=== PATIENT | female | born 1990 | race Caucasian/White ===

== ENCOUNTER 2016-08-12 13:47 | Emergency (ER) | payer BC ==
[~2016-08-12] VITALS: Ht 165.1 cm; Wt 89.8 kg
[~2016-08-12 13:47] MED LIST: METR-163 PO; PRENTAB26 PO
[2016-08-12 14:00] VITALS: TEMP 36.9; Ht 165.1 cm; Wt 89.8 kg
[2016-08-12] MEDS ORDERED: ACET-1256 PO (14:30)
[2016-08-12] MEDS ORDERED: ONDANSETRON INJ 2 MG/ML 2 ML VIAL IV STA (14:37)
[2016-08-12] MEDS ORDERED: SODIUM CHLORIDE 0.9% 1000ML 1,000 ML IV STA (14:37)
[2016-08-12] MEDS ORDERED: OPTIRAY 320 IV PRN (14:45)
[2016-08-12] MEDS ORDERED: KETOROLAC TROMETHAMINE 30 MG/ML VIAL IV STA (15:01)
[2016-08-12 15:05] LABS: URINE APPEARANCE CLOUDY (CLEAR); URINE BILIRUBIN NEG (NEG); URINE COLOR YELLOW; URINE EPITHELIAL CELL AUTO >30 /lpf (0-5); URINE NITRITE NEG (NEG); URINE SPECIFIC GRAVITY 1.022 (1.000-1.030); UROBILINOGEN NEG (NEG)
[2016-08-12 15:06] LABS: BASO % 0.4 %; BASO ABS # 0.04 K/uL (0-0.2); COMPLETE YES; EOS % 1.3 %; HEMATOCRIT 42.2 % (37-47); IG% 0.2 %; MEAN CELL VOLUME 84.9 fL (80-100); MEAN CORPUSCULAR HEMOGLOBIN 30.2 pg (25-34); MEAN CORPUSCULAR HGB CONC 35.5 g/dl (32-36); MEAN PLATELET VOLUME 10.2 fL (7.4-10.4); MONO % 5.5 %; NEUT % 63.6 %; PLATELET COUNT 242 K/uL (130-400); RED BLOOD COUNT 4.97 M/uL (4.2-5.4)
--- NOTE | 2016-08-12 15:06 | EMERGENCY ROOM VISIT NOTE ---
History Report prepared by Aki: Cristal Beasley Under the Supervision of: Dr. John Cote M.D. First contact with patient: 14:31 Chief Complaint: ABDOMINAL PAIN Stated Complaint: STOMACH PAINS, CRAMPING Nursing Triage Summary: Pt reports constipation and severe stomach pains for over a week. Hx chrons. Last BM over a week ago. Also reports bloating and nausea. History of Present Illness The patient is a 25 year old female who presents to the Emergency Room with complaints of persistent abdominal pain for the past week. She describers her pain as sharp and cramping and rates her discomfort as a 5/10 in severity. The patient has a history of Crohn's disease, but states that she has not had any major symptoms for the past 10 years. She also reports that she is not on any immunosuppressants or other medications. She reports that she has not had a bowel movement since last week. The patient does admit that she regularly experiences constipation, but she states that she can usually take laxatives to alleviate her discomfort. She states that food intake worsens her pain, creating a burning sensation in her stomach. She denies any fever. Source of History: patient Onset: last week Position: abdomen Symptom Intensity: 5/10 Quality: sharp, cramping Timing: other (persistent) Modifying Factors (Worsening): eating Associated Symptoms: + nausea, No fevers Note: Associated symptoms: Constipation, bloating Review of Systems See HPI for pertinent positives & negatives. A total of 10 systems reviewed and were otherwise negative. Past Medical & Surgical Medical Problems: (1) Crohns disease Social History Smoking Status: Current Some Day Smoker Alcohol Use: occasionally Drug Use: none Marital Status: single Housing Status: lives with family Occupation Status: employed Current/Historical Medications Scheduled Acetaminophen (Tylenol), 1,000 MG PO DIRECTED Allergies Coded Allergies: No Known Allergies (Verified , 08/12/16) Physical Exam Vital Signs Date Time Temp Pulse Resp B/P Pulse Ox O2 Delivery O2 Flow Rate FiO2 08/12/16 19:00 81 16 115/80 94 08/12/16 17:28 90 18 127/83 99 Room Air 08/12/16 15:46 80 16 132/74 100 Room Air 08/12/16 14:00 36.9 93 18 147/97 98 Room Air Physical Exam CONSTITUTIONAL: The patient appears to be in mild to moderate distress. HEENT: No icterus, moist mucous membranes NECK: No meningismus, trachea is midline. CARDIOVASCULAR: Regular rate, normal perfusion RESPIRATORY: Unlabored breathing. Clear to auscultation. GASTROINTESTINAL: Mild LLQ tenderness. GENITOURINARY: No flank tenderness MUSCULOSKELETAL: Full range of motion NEUROLOGIC: No acute gross focal deficits. PSYCHIATRIC: Normal affect SKIN: Normal for ethnicity. Medical Decision & Procedures ER Provider Diagnostic Interpretation: Radiology results as stated below per my review and radiologist interpretation. ABDOMEN AND PELVIS CT WITH IV AND ORAL CONTRAST IMPRESSION: 1. Nonobstructive bowel pattern. 2. Normal appendix. 3. 1.6 cm collapsing right ovarian cyst. 4. Moderate reactive mesenteric adenitis. Electronically signed by: Nolberto Rodriguez M.D. 08/12/2016 5:50 PM Laboratory Results 08/12/16 14:50 Red Blood Count 4.97, Mean Corpuscular Volume 84.9, Mean Corpuscular Hemoglobin 30.2, Mean Corpuscular Hemoglobin Concent 35.5, Mean Platelet Volume 10.2, Neutrophils (%) (Auto) 63.6, Lymphocytes (%) (Auto) 29.0, Monocytes (%) (Auto) 5.5, Eosinophils (%) (Auto) 1.3, Basophils (%) (Auto) 0.4, Neutrophils # (Auto) 5.91, Lymphocytes # (Auto) 2.70, Monocytes # (Auto) 0.51, Eosinophils # (Auto) 0.12, Basophils # (Auto) 0.04 08/12/16 14:50 Test 08/12/16 14:50 White Blood Count 9.30 K/uL (4.8-10.8) Red Blood Count 4.97 M/uL (4.2-5.4) Hemoglobin 15.0 g/dL (12.0-16.0) Hematocrit 42.2 % (37-47) Mean Corpuscular Volume 84.9 fL (80-100) Mean Corpuscular Hemoglobin 30.2 pg (25-34) Mean Corpuscular Hemoglobin Concent 35.5 g/dl (32-36) Platelet Count 242 K/uL (130-400) Mean Platelet Volume 10.2 fL (7.4-10.4) Neutrophils (%) (Auto) 63.6 % Lymphocytes (%) (Auto) 29.0 % Monocytes (%) (Auto) 5.5 % Eosinophils (%) (Auto) 1.3 % Basophils (%) (Auto) 0.4 % Neutrophils # (Auto) 5.91 K/uL (1.4-6.5) Lymphocytes # (Auto) 2.70 K/uL (1.2-3.4) Monocytes # (Auto) 0.51 K/uL (0.11-0.59) Eosinophils # (Auto) 0.12 K/uL (0-0.5) Basophils # (Auto) 0.04 K/uL (0-0.2) RDW Standard Deviation 39.3 fL (36.4-46.3) RDW Coefficient of Variation 12.8 % (11.5-14.5) Immature Granulocyte % (Auto) 0.2 % Immature Granulocyte # (Auto) 0.02 K/uL (0.00-0.02) Urine Color YELLOW Urine Appearance CLOUDY (CLEAR) Urine pH 6.0 (4.5-7.5) Urine Specific [place] 1.022 (1.000-1.030) Urine Protein NEG (NEG) Urine Glucose (UA) NEG (NEG) Urine Ketones TRACE (NEG) Urine Occult Blood TRACE (NEG) Urine Nitrite NEG (NEG) Urine Bilirubin NEG (NEG) Urine Urobilinogen NEG (NEG) Urine Leukocyte Esterase MODERATE (NEG) Urine WBC (Auto) 10-30 /hpf (0-5) Urine RBC (Auto) 0-4 /hpf (0-4) Urine Hyaline Casts (Auto) 1-5 /lpf (0-5) Urine Epithelial Cells (Auto) >30 /lpf (0-5) Urine Bacteria (Auto) 2+ (NEG) Anion Gap 12.0 mmol/L (3-11) Est Creatinine Clear Calc Drug Dose 96.0 ml/min Estimated GFR () 91.3 Estimated GFR (Non- 78.8 BUN/Creatinine Ratio 15.7 (10-20) Calcium Level 9.2 mg/dl (8.5-10.1) Total Bilirubin 0.5 mg/dl (0.2-1) Direct Bilirubin < 0.1 mg/dl (0-0.2) Aspartate Amino Transf (AST/SGOT) 13 U/L (15-37) Alanine Aminotransferase (ALT/SGPT) 20 U/L (12-78) Alkaline Phosphatase 71 U/L (45-117) Total Protein 7.8 gm/dl (6.4-8.2) Albumin 3.9 gm/dl (3.4-5.0) Lipase 220 U/L (73-393) Human Chorionic Gonadotropin, Qual NEG (NEG) Labs reviewed by ED physician. Medications Administered Medications (Trade) Dose Ordered Sig/Oneil Route Start Time Stop Time Status Last Admin Dose Admin Sodium Chloride (Nss 1000ml) 1,000 ml @ 0 mls/hr Q0M STAT IV 08/12/16 14:37 08/12/16 14:40 DC 08/12/16 15:08 0 MLS/HR Ondansetron HCl (Zofran Inj) 4 mg NOW STAT IV 08/12/16 14:37 08/12/16 14:40 DC 08/12/16 15:08 4 MG Ketorolac Tromethamine (Toradol Inj) 30 mg NOW STAT IV 08/12/16 15:01 08/12/16 15:02 DC 08/12/16 15:09 30 MG ED Course 1437: Ondansetron HCl 4mg IV, NSS 1000 ml @ 0 mls/hr IV 1441: Past medical records reviewed. The patient was evaluated in room B8. A complete history and physical examination was performed. 1501: Toradol Inj 30 mg IV 1839: I reevaluated the patient. She is looks good and is feeling better. I discussed the results and discharge instructions with her and she verbalized complete understanding and agreement. Her abdominal exam is still benign. Medical Decision Prior records/ancillary studies reviewed. Triage Nursing notes reviewed. Additional history obtained from []. The patient's history was concerning for abdominal pain. Differential diagnosis: Etiologies such as ovarian cyst, constipation, complications of Crohn's disease. 25 y/o with distant h/o of Crohn's asymptomatic for 10 years presented to the ED for evaluation of bloating, cramping, and LLQ discomfort in the context of mild constipation. CT (+) mesenteric adenitis, small cyst. Patient comfortable on re-exam. Provided copy of CT report. Abd benign prior to discharge. Patient understands to take Tylenol and Motrin 600mg. Impression Primary Impression: Abdominal pain Scribe Attestation The scribe's documentation has been prepared under my direction and personally reviewed by me in its entirety. I confirm that the note above accurately reflects all work, treatment, procedures, and medical decision making performed by me. Departure Information Dispostion Home / Self-Care Referrals No Doctor, Assigned (PCP) Forms HOME CARE DOCUMENTATION FORM, IMPORTANT VISIT INFORMATION Patient Instructions Abdominal Pain - [facility], My [facility] Additional Instructions Tylenol 650 mg and Motrin 600 mg together every 6 hours as needed for pain.
[2016-08-12 15:07] LABS: MANUAL MICROSCOPIC REQUIRED? NO; REVIEW REQ? NO
[2016-08-12 15:26] LABS: PREG INTERNAL NEGATIVE QC NEG CLEAR BACKGROUND; PREG INTERNAL POSITIVE QC POS CONTROL LINE
[2016-08-12 15:32] LABS: ALT/SGPT 20 U/L (12-78); BLOOD UREA NITROGEN 16 mg/dl (7-18); BUN/CREATININE RATIO 15.7 (10-20); CALCIUM 9.2 mg/dl (8.5-10.1); CARBON DIOXIDE 25 mmol/L (21-32); GLUCOSE 81 mg/dl (70-99)
[2016-08-12 16:54] LABS: CHLORIDE 107 mmol/L (98-107); POTASSIUM 3.6 mmol/L (3.5-5.1); SODIUM 144 mmol/L (136-145)
[2016-08-12 17:02] LABS: ALKALINE PHOSPHATASE 71 U/L (45-117); AST/SGOT 13 U/L (15-37)
--- NOTE | 2016-08-12 17:51 | DIAGNOSTIC IMAGING REPORT ---
ABDOMEN AND PELVIS CT WITH IV AND ORAL CONTRAST CT DOSE: 734.34 mGy.cm HISTORY: Pain abd pain, croons TECHNIQUE: Multiaxial CT images of the abdomen and pelvis were performed following the use of intravenous and oral contrast. COMPARISON STUDY: None. FINDINGS: Lung bases are clear. Minimal dependent scattered plaque atelectasis. Mild fatty infiltration of liver. Gallbladder is negative for distention. Spleen is uniform. Pancreas is unremarkable. Kidneys demonstrate mild cortical scarring bilaterally. There is no evidence renal hydronephrosis. Bowel pattern is nonobstructive. The appendix is normal. Moderate scattered mesenteric and right lower quadrant pericecal rashad changes present. This suggests a component of mesenteric adenitis. Intrauterine device is present within the anteflexed uterus. There is a 1.6 cm collapsing right ovarian cyst. There is no free fluid within the pelvic cul-de-sac. IMPRESSION: 1. Nonobstructive bowel pattern. 2. Normal appendix. 3. 1.6 cm collapsing right ovarian cyst. 4. Moderate reactive mesenteric adenitis. Electronically signed by: Nolberto Rodriguez M.D. 08/12/2016 5:50 PM Dictated Date/Time: 08/12/2016 5:46 PM
[2016-08-12 19:00] VITALS: BP 115/80; PULSE 81; O2SAT 94
== END 2016-08-12 19:00 | disposition home or self-care (01) ==
LOC: C.EDB 13:48
DX: R10.9 Unspecified abdominal pain (principal); K50.90 Crohn's disease, unspecified, without complications; F17.200 Nicotine dependence, unspecified, uncomplicated

== ENCOUNTER 2017-04-12 20:26 | Emergency (ER) | payer BC ==
[~2017-04-12] VITALS: Ht 165.1 cm; Wt 92.2 kg
[~2017-04-12 20:26] MED LIST changes: +ACET-1256 PO; -METR-163 PO; -PRENTAB26 PO
[2017-04-12 20:40] VITALS: BP 136/89; TEMP 36.8; Ht 165.1 cm; Wt 92.2 kg
[2017-04-12] MEDS ORDERED: OXYCODONE HCL IR 5 MG TAB (IMMEDIATE RELEASE) PO STA (21:07)
--- NOTE | 2017-04-12 22:10 | EMERGENCY ROOM VISIT NOTE ---
ED Visit Note First contact with patient: 21:01 Chief Complaint: "Smashed finger/cut". History of Present Illness: This patient is a 26-year-old female who presents to the Emergency Department via private vehicle accompanied by female for evaluation of their left second digit laceration. Patient sustained the laceration while attempting to throw piece of wood into the furnace, when she smashed the distal portion of the left second digit between the metal furnace in the piece of what. They report a small amount of bleeding initially. They admit to any numbness or tingling into the distal extremity. They report note decreased range of motion of the affected digit. She has tried ibuprofen prior to coming here with minimal relief. Patient rates her current discomfort as a 9/ 10. Patient's Tetanus status is believed to be currently up-to-date. Medications: As noted below Allergies: No pertinent PMH: No pertinent SHx: Patient lives locally ROS: All pertinent positive and negative review of systems are appropriately documented in the History of Present Illness. Physical Exam: VITAL SIGNS - Vital signs and nursing notes were reviewed. GENERAL -26-year-old female appearing her stated age who is in no acute distress. Communicates well with provider and answers questions appropriately. SKIN - There is a 0.5 cm long laceration noted on the lateral aspect of the patient's left second digit. The edges do not gape apart with traction. No foreign bodies appreciated. Upon further examination there are no deep structures including vessel, tendon, or bony structures appreciated. Subungual hematoma noted. There is no active bleeding noted. MUSCULOSKELETAL - Laceration as described above. +5/5 strength appreciated of the affected digit. Full range of motion of the affected digit. NEUROLOGIC - Spinothalamic tract was found to be intact with ability to discriminate sharp versus dull sensation. No sensory defects of the dorsal column were appreciated utilizing light touch for evaluation. VASCULAR - Capillary refill was brisk. IMAGING: LEFT SECOND FINGER 3 VIEWS CLINICAL HISTORY: Crushing injury. FINDINGS: 3 views of the left second finger are obtained. No prior studies are available for comparison at the time of dictation. There is a comminuted and nondistracted fracture through the tuft of the second distal phalanx with overlying soft tissue edema. Nondistracted horizontal fracture is also suggested through the proximal shaft of the second distal phalanx. This is best seen on the lateral projection. No additional fracture is seen. The second metacarpophalangeal and interphalangeal joints are well-maintained. No radiodense foreign body seen. IMPRESSION: 1. There is a comminuted and nondistracted fracture through the tuft of the second distal phalanx with overlying soft tissue edema. 2. Question additional nondistracted horizontal fracture through the proximal shaft of the second distal phalanx. Electronically signed by: Amando Combs M.D. 04/12/2017 10:11 PM Dictated Date/Time: 04/12/2017 10:10 PM ED Course: Patient was seen and evaluated by myself. Risks and benefits of performing primary wound closure versus no repair were discussed with the patient who verbalizes understanding. Verbal consent was obtained prior to performing the procedure. No evidence of suturable wound. It was superficial. Subungual hematoma noted. Patient notes great pressure and pain in this region, therefore benefit versus risk of trephination was discussed. Decision was made to perform this with sterile drill. There was release of blood from the region. Patient was starting to regain feeling of the finger, and notes that her pain was starting to become alleviated. She was given the oxycodone immediate release for her pain. She denied chance of . X-ray was obtained with results as above. Fracture noted. No evidence of open fracture. Wound was cleansed thoroughly with normal saline and Betadine., She was placed in a metal splint. Bacitracin dressing was applied. She is to follow with family doctor/orthopedics. She was educated upon management, educated upon worrisome symptoms which to return, had questions answered prior to discharge, and was discharged home in good condition. Small prescription for oxycodone was written secondary to her pain with the fracture. In the evaluation and treatment of this patient, the following differential diagnoses were considered: Finger Fracture, Finger Dislocation, Finger Sprain, Finger Contusion, [place] Finger, or Mallet Finger. In the treatment of this patient controlled medication was utilized and therefore the [facility], Prescription Drug Monitoring Program website was utilized to look up this patient. No concerns were identified that would prohibit or alter my treatment decision. Current/Historical Medications Scheduled PRN Oxycodone Ir (Roxicodone Ir), 1-2 TAB PO Q4H PRN for Pain Allergies Coded Allergies: No Known Allergies (Verified , 08/12/16) Vital Signs Date Time Temp Pulse Resp B/P (MAP) Pulse Ox O2 Delivery O2 Flow Rate FiO2 04/12/17 22:41 72 16 99 04/12/17 20:40 36.8 76 18 136/89 98 Room Air Medications Administered Medications (Trade) Dose Ordered Sig/Oneil Route Start Time Stop Time Status Last Admin Dose Admin Oxycodone HCl (Roxicodone Immediate Rel Tab) 5 mg NOW STAT PO 04/12/17 21:07 04/12/17 21:09 DC 04/12/17 21:37 5 MG Oxycodone HCl (Roxicodone Immediate Rel 5MG Home Pack) 1 homepack UD STAT PO 04/12/17 22:24 04/12/17 22:25 DC 04/12/17 22:35 1 HOMEPACK Departure Information Impression Primary Impression: Laceration of finger Additional Impression: Finger fracture Dispostion Home / Self-Care Condition GOOD Prescriptions Oxycodone Ir (Roxicodone Ir) 5 Mg Tab 1-2 TAB PO Q4H Y for Pain, #15 TAB For Initial Treatment Prov: Ty Melendez PA-C 04/12/17 Referrals No Doctor, Assigned (PCP) Sebas Pickens MD Patient Instructions My [facility] Additional Instructions Discharge Instructions: Please wear the splint for comfort until follow up with Family doctor or orthopedics oxy ir for pain. no driving with this in your system. Proper wound care is essential for adequate wound healing and infection prevention. You can shower and clean the wound with soap and water. Do not scour over the wound, pat dry with a towel. Do not submerse the wound (i.e. bathe or dish wash) until the wound is healed. You can use an antibiotic ointment with a dressing over the wound for the next 3-4 days. After this time you may leave the wound dry and open to the air. If crust develops over the wound you can use a Q-tip to apply a 1:1 peroxide:water solution to clean the wound. Look for signs of infection of the wound including: increased pain, swelling, foul discharge, streaking, or increased temperature. If any of these are noticed you should return to the Emergency Department for further assessment and treatment. As with any laceration you may have received nerve damage to the surrounding tissues. This damage may or may not be permanent. You should keep the area covered with sunscreen for the first 6 months to 1 year when at risk for exposure to help minimize scarring. You can also use scar reducing creams or Vitamin E oil to help minimize scarring. For pain control, you can use the following [id number] medicines (if >12 yo): - Regular strength (325mg/tab) Tylenol (acetaminophen) 2 tabs every 4-6 hours as needed. Do not exceed 12 tablets in a 24 hour period. Avoid taking more than 3 grams (3000 mg) of Tylenol per day. This includes any other sources of acetaminophen you may take on a regular basis. - Regular strength (200 mg/tab) Advil (ibuprofen) 1-2 tabs every 4-6 hours as needed. Do not exceed a dose of 3200 mg per day. Return to the emergency department if your symptoms worsen despite treatment course outlined above. Problem Qualifiers
--- NOTE | 2017-04-12 22:13 | DIAGNOSTIC IMAGING REPORT ---
LEFT SECOND FINGER 3 VIEWS CLINICAL HISTORY: Crushing injury. FINDINGS: 3 views of the left second finger are obtained. No prior studies are available for comparison at the time of dictation. There is a comminuted and nondistracted fracture through the tuft of the second distal phalanx with overlying soft tissue edema. Nondistracted horizontal fracture is also suggested through the proximal shaft of the second distal phalanx. This is best seen on the lateral projection. No additional fracture is seen. The second metacarpophalangeal and interphalangeal joints are well-maintained. No radiodense foreign body seen. IMPRESSION: 1. There is a comminuted and nondistracted fracture through the tuft of the second distal phalanx with overlying soft tissue edema. 2. Question additional nondistracted horizontal fracture through the proximal shaft of the second distal phalanx. Electronically signed by: Amando Combs M.D. 04/12/2017 10:11 PM Dictated Date/Time: 04/12/2017 10:10 PM
[2017-04-12] MEDS ORDERED: OXYCODONE IR HOME PACK PO STA (22:24)
[2017-04-12] MEDS ORDERED: OXYC1TAB3 PO (22:25)
[2017-04-12 22:41] VITALS: PULSE 72; O2SAT 99
== END 2017-04-12 22:43 | disposition home or self-care (01) ==
LOC: C.EDB 20:27 → C.EDD 22:43
DX: S61.211A Laceration without foreign body of left index finger without damage to nail, initial encounter (principal); S62.601A Fracture of unspecified phalanx of left index finger, initial encounter for closed fracture; W45.8XXA Other foreign body or object entering through skin, initial encounter

== ENCOUNTER → 2017-04-13 | Outpatient (CLI) | payer BC ==
[~2017-04-13] MED LIST changes: -ACET-1256 PO; +OXYC1TAB3 PO
--- NOTE | 2017-04-13 14:01 | DIAGNOSTIC IMAGING REPORT ---
CHEST 2 VIEWS ROUTINE CLINICAL HISTORY: WHEEZING, COUGH COMPARISON STUDY: No previous studies for comparison. FINDINGS: The cardiac and mediastinal contours are normal. There is no evidence of focal pulmonary consolidation. There is no evidence of failure. No pleural effusions are visualized.[ IMPRESSION: No active disease in the chest. Electronically signed by: Delbert Summers M.D. 04/13/2017 1:59 PM Dictated Date/Time: 04/13/2017 1:59 PM
== END | disposition home or self-care (01) ==
LOC: C.RAD1850 13:44
PROVIDERS: ATTEND Family Medicine
DX: R06.2 Wheezing (principal); R05 Cough

== ENCOUNTER → 2017-06-29 | Outpatient (CLI) | payer OTHER ==
[~2017-06-29] MED LIST changes: +OXYC-90 PO; -OXYC1TAB3 PO
== END | disposition home or self-care (01) ==
LOC: C.LABSPEC 14:32
PROVIDERS: ATTEND Physician Assistant
DX: Z01.419 Encounter for gynecological examination (general) (routine) without abnormal findings (principal)

== ENCOUNTER → 2017-08-01 | Outpatient (CLI) | payer OTHER ==
[~2017-08-01] MED LIST changes: -OXYC-90 PO; +OXYC1TAB3 PO
== END | disposition home or self-care (01) ==
LOC: C.LABSPEC 11:54
PROVIDERS: ATTEND Family Medicine
DX: J02.9 Acute pharyngitis, unspecified (principal)